=== PATIENT | male | born 1965 | race Caucasian/White ===

== ENCOUNTER 2023-04-23 09:22 | Emergency (ER) | payer BC, SELFPAY ==
--- NOTE | ~2023-04-23 | XR_ITS ---
EXAMINATION: XR ribs RT 2V w CXR 2V DATE: 04/23/2023 13:19 INDICATION: Right chest injury TECHNIQUE: PA and lateral views of the chest and 3 views of the right ribs were obtained. COMPARISON: None FINDINGS: Minimally displaced and angulated anterolateral right fourth rib fracture. No other rib fractures dacia ntified. Small right pleural effusion. No pneumothorax. Mild streaky atelectasis at the bilateral ian g bases. No pulmonary edema or left-sided pleural effusion. Cardiomediastinal silhouette is within no rmal limits for AP technique. Mild to moderate thoracic spondylosis. IMPRESSION: 1. Acute minimally displaced and angulated anterolateral right fourth rib fracture. 2. Likely posttraumatic small right pleural effusion. No pneumothorax. 3. Mild streaky bibasilar opacities and favor atelectasis over pneumonia. Reviewed, dictated and finalized at location A. GER R D IMPRESSION: 1. Acute minimally displaced and angulated anterolateral right fourth rib fract ure. 2. Likely posttraumatic small right pleural effusion. No pneumothorax. 3. Mild streaky bibasilar opacities and favor atelectasis over pneumonia.
--- NOTE | ~2023-04-23 | XR_ITS ---
EXAMINATION: XR shoulder RT min 2V INDICATION: Right shoulder pain TECHNIQUE: Four views of the right shoulder are submitted. COMPARISON: None FINDINGS: There are 11 mm of separation at the acromioclavicular joint. The acromion is positioned 21 mm caudal to its normal position relative to the clavicle. The glenohumeral joint is unremarkable. T here is heterotopic ossification at the acromioclavicular joint. There is an acute appearing right fo urth rib fracture. There are airspace opacities of the right lung base. A small right pleural effusio n is suggested. IMPRESSION: 1. Probable acute right fourth rib fracture. 2. Age indeterminate acromioclavicular joint separation. Reviewed, dictated and finalized at location B. 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
[2023-04-23 09:39] VITALS: BP 143/84; PULSE 87; RESP 18; TEMP 36.4; O2SAT 96
[2023-04-23] MEDS: diazePAM INJ (*CRX) 10 MG/2 ML SYRINGE 5 MG IV PUSH (13:04)
[2023-04-23] MEDS: KETOROLAC 30 MG/ML VIAL (*BKC) IV PUSH (13:04)
[2023-04-23] MEDS: SODIUM CHLORIDE 0.9% IV 1,000 ML 999 ML IV CONT (13:04)
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
== END 2023-04-23 14:41 | disposition home or self-care (01) ==
PROVIDERS: Emergency Provider Emergency Medicine; PCP Family Medicine
DX: S22.31XA Fracture of one rib, right side, initial encounter for closed fracture (principal); M62.838 Other muscle spasm; I25.10 Atherosclerotic heart disease of native coronary artery without angina pectoris; I10 Essential (primary) hypertension; E03.9 Hypothyroidism, unspecified; E78.5 Hyperlipidemia, unspecified; V86.55XA Driver of 3- or 4- wheeled all-terrain vehicle (ATV) injured in nontraffic accident, initial encounter
CPT/HCPCS: 71046; 71100; 73030; 96361; 96374; 96375; 99284; J1885; J3360; J7030

== ENCOUNTER 2024-10-03 14:46 | Emergency (ER) | payer BC, SELFPAY ==
--- NOTE | ~2024-10-03 | XR_ITS ---
EXAMINATION: XR chest 2V Exam Date/Time: 10/03/2024 15:15 CDT HISTORY: chest pain, SWEATING, CHILLS X 3 DAYS Comparison: 04/23/2023 x-ray RIBS and chest. RESULT: Lines, tubes, and devices: None. Lungs and pleura: Streaky bibasilar atelectasis/scar, otherwise clear. Cardiomediastinal silhouette: Stable. Other: No acute osseous or upper abdominal finding. Old healed right anterior fourth rib fracture. IMPRESSION: No acute cardiopulmonary process. Reviewed, dictated and finalized at location [facility].
--- OUTSIDE RECORDS SUMMARY | 2024-10-03 14:50 | XMS_ITS | Patient Health Record ---
Author Organization [facility] Address [address] [facility]. [address] [place] [address] Care Team Providers Care Instructor Tap Dancing Name Role Phone Merrill Salazar MD Primary Care Provider Unavailab Candelario Menchaca Unavailable [phone] Reason For Referral No Information Plan Of Treatment No Information Insurance Providers Payer Name Payer Address Payer Phone Subscriber Number Group Number Insured Name Patient Relationship to Insured Coverage Start Date Coverage End Date Blue Access PPO [id number] [address] [place] [address] [id number] Elder Bates Self - patient is the insured
--- OUTSIDE RECORDS SUMMARY | 2024-10-03 14:50 | XMS_ITS | Clinical Summary ---
Author Organization [facility] Address [address] [place] [address] Care Team Providers Care Contact Lens Technician Name Role Phone Merrill Salazar MD Primary Care Provider [phone] Gilbert Coats MD Unavailable [phone] Fer Le MD Unavailable Allergies No known active allergies Medications multivitamin with minerals tablet Take 1 tablet by mouth daily Active lisinopriL (PRINIVIL,ZESTR IL) 5 mg tablet Take 1 tablet (5 mg total) by mouth daily 90 tablet 2 3 Active atorvastatin (LIPITOR) 80 mg tablet Take 1 tablet (80 mg total) by mouth daily 90 tablet 2 3 Active ticagrelor (BRILINTA) 90 mg tablet Take 1 tablet (90 mg total) by mouth 2 (two) times a day 180 tablet 2 3 Active aspirin 81 mg enteric coated tablet Take 1 tablet (81 mg total) by mouth daily 90 tablet 3 Active omeprazole (PriLOSEC) 20 mg capsule Take 2 capsules (40 mg total) by mouth 2 (two) times a day Active levothyroxine (SYNTHROID) 175 mcg tablet Take 1 tablet (175 mcg total) by mouth marine extension agent before breakfast Active ezetimibe (ZETIA) 10 mg tablet Take 1 tablet (10 mg total) by mouth daily 90 tablet 2 3 Active Additional Information Patient not taking.Reported on 11/27/2022 metoprolol tartrate (LOPRESSOR) 50 mg immediate release tablet TAKE ONE TABLET BY MOUTH TWICE DAILY 60 tablet 6 3 Active Active Problems Problem Noted Date Diagnosed Date S/P primary angioplasty with coronary stent 04/06 Precordial pain 04/26/2022 Abnormal electrocardiogram during exercise stres s test 04/25/2022 Overview (04/26/2022): Added automatically from request for surgery [id number] Acquired hypothyroidism 05/13/2019 Assessment & Plan (11/27/2022 2:16 PM CDT): Chronic problem. Last TSH drawn by cardio 6.37. Has not been taking alone (with all other meds). Will start taking 30-60min before eating or other meds. Will repeat labs in 6-8 weeks. Verified that he uses [facility] [employer] [facility]. Aware to check results/results letter in [employer]. Will contact by phone if needed. Assessment & Plan (10/13/2021 1:53 PM CDT): Continue with Levothyroxine 175 mc weekly Assessment & Plan (04/14/2021 2:39 PM COUNCIL ON AGING DIRECTOR): Thyroid function tests, including TSH and free T4 were requested Will adjust dose of Levothyroxine accordingly . If there is a need to make changes, will recheck levels in 2-3 months. Instructions to patient on taking medication properly : in the morning, on an empty stomach , 1 h part from food and/or other meds. Assessment & Plan (09/30/2020 2:37 PM CDT): Thyroid function tests, including TSH and free T4 were requested Will adjust dose of Levothyroxine accordingly . If there is a need to make changes, will recheck levels in 2-3 months. Instructions to patient on taking medication properly : in the morning, on an empty stomach , 1 h part from food and/or other meds. Assessment & Plan (04/01/2020 1:43 PM COUNCIL ON AGING DIRECTOR): Uncontrolled Increase to 175 mcg daily Recheck levels in 3 months. Assessment & Plan (10/02/2019 4:04 PM CDT): Thyroid function tests, including TSH and free T4 were requested Will adjust dose of Levothyroxine accordingly . If there is a need to make changes, will recheck levels in 2-3 months. Instructions to patient on taking medication properly : in the morning, on an empty stomach , 1 h part from food and/or other meds. 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 If within the next few days or weeks, you experience any fever, difficulty in breathing or chest pain, proceed to the emergency room. Follow up in 6 weeks. It is very important that you keep your appointment. ! Hypercholesterolemia 05/13/2019 Assessment & Plan (10/13/2021 1:52 PM CDT): Pravachol 40 mg daily Assessment & Plan (10/02/2019 4:04 PM CDT): Check lipid profile Adjust dose of Pravachol as indicated Low chol low fat diet exercise Assessment & Plan (06/10/2019 1:28 PM CDT): Check lipid profile Might be able to come off of statins, Assessment & Plan (05/13/2019 12:28 PM CDT): This is most likely related to severe hypothyroidism. I would focus on treating the hypothyroidism, before adjusting any dose of statin The patient asked me to recheck his lipid profile today T Low testosterone 05/13/2019 Assessment & Plan (11/27/2022 2:11 PM CDT): Chronic problem. Testosterone stopped by automotive service consultant after stent placed 04/2022. Assessment & Plan (10/13/2021 1:52 PM CDT): Continue with T , 200 mg qod Assessment & Plan (04/14/2021 2:39 PM COUNCIL ON AGING DIRECTOR): Check T levels Restart T replacement as indicated Assessment & Plan (09/30/2020 2:38 PM CDT): Continue T replacement with Androgel Check CBC, PSA Assessment & Plan (04/01/2020 1:43 PM COUNCIL ON AGING DIRECTOR): Restart T gel Recheck levels in 3 m Assessment & Plan (10/02/2019 4:05 PM CDT): Will recheck morning testosterone levels as well as FSH and LH If abnormal, will address Assessment & Plan (05/13/2019 12:28 PM CDT): Without any clinical evidence of hypogonadism I will recheck a morning testosterone after his thyroid levels are normalized Abnormal stress test Coronary artery disease involving [place] heart Immunizations Immunization Administration Dates Next Due Moderna SARS-CoV-2 Monovalent Vaccination (12+ Y RS) 06/29/2020,06/01/2020 Surgical History Surgery Date Site/Laterality Comments HERNIA REPAIR 03/05/2015 - 03/04/2016 Medical History Medical History Date Comments Hyperlipidemia GERD (gastroesophageal reflux disease) Thyroid disease HL (hearing loss) Hoarseness Family History Medical History Relation Name Comments No Known Problems Father No Known Problems Mother Thyroid disease Neg Hx Relation Name Status Comments Father Mother Social History Tobacco Use Types Packs/Day Years Used Date Smoking Tobacco: Former Cigarettes Q uit: 01/03/2022 Smokeless Tobacco: Never PHQ-2 Answer Date Recorded PHQ-2 Total Score (If total score is 3 or more points, staff should administer the PHQ-9) 0 06/12/2022 Personal Safety Answer Date Recorded Getting School Help Needed Not on file Sex and Gender Information Value Date Recorded Sex Assigned at Not on file Legal Sex Male 1:34 PM CDT Gender Identity Not on file Sexual Orientation Not on file Obstetrics History Last Filed Vital Signs Vital Sign Reading Time Taken Comments Blood Pressure 119/64 11/27/2022 1:27 PM CDT Pulse 64 11/27/2022 1:27 PM CDT Temperature 36.6 C (97.9 F) 04/28/2022 11:02 AM COUNCIL ON AGING DIRECTOR Respiratory Rate 17 04/28/2022 11:0 2 AM COUNCIL ON AGING DIRECTOR Oxygen Saturation 98% 10/02/2022 12: 51 PM CDT Inhaled Oxygen Concentration - - Weight 101.4 kg (223 lb 9.6 oz) 11/27/2022 1:27 PM CDT Height 172.7 cm (5' 8) 11/27/2022 1:27 PM CDT Body Mass Index 34 11/27/2022 1:27 PM CDT Plan of Treatment Health Maintenance Due Date Last Done Comments Colon Cancer Screening-Colonoscopy 1965 Hepatitis C Screening 1965 DTaP/Tdap/Td Vaccine (1 - Tdap) 1974 Hepatitis B Screening 1981 Regular Well Visit/Exam 18-64 1981 Zoster Vaccine (1 of 2) 2013 Prostate Cancer Screening-PSA 09/30/2022 09/30/2020 Depression Screening 06/13/2023 06/12/2022, 06/12/2022, 10/13/2021, Additional history exists Covid-19 Vaccine ( season) 2023 06/29/2020, 06/01/2020 Influenza Vaccine (#1) 2024 Pneumococcal vaccine <65 Aged Out No longer eligible based on patient's age to complete this topic Medical Devices Implanted Type Area Extrusion Die Template Maker Device Identifier Shelf Expiration Date Model / Serial / Lot Medtronic Card Vasc Surgery 3.0 X 18mm [place] Rx Coronary Stent [id number] - [id number] Implanted:Qty: 1 on 04/27/2022 by Gilbert Coats MD at [facility] Medtronic Card Vasc Surgery 01/10/2025 [id number] / / [id number] NaviExpert Angio-Seal Vip 6fr Closere Device [id number] - [id number] Implanted:Qty: 1 on 04/27/2022 by Gilbert Coats MD at [facility] 12/02/2022 [id number] / / [id number] Procedures Procedure Name Priority Date/Time Associated Diagnosis Comments PSA SCREEN Routine 09/30/2020 3:34 PM CDT from Last 3 Months or Most Recently Relevant to Health Maintenance Results * PSA screen (09/30/2020 3:34 PM CDT) PSA 0.5 < OR = 4.0 ng/mL [facility] Comment: The total PSA value from this assay system is standardized against the WHO standard. The test result will be approximately 20% lower when compared to the equimolar-standardized total PSA (Jose Luis Juancarlos). Comparison of serial PSA results should be interpreted with this fact in mind. This test was performed using the Siemens chemiluminescent method. Values obtained from different assay methods cannot be used interchangeably. PSA levels, regardless of value, should not be interpreted as absolute evidence of the presence or absence of disease. 09/30/2020 3:34 PM CDT 09/30/2020 3:36 PM CDT Narrative [facility] - 10/01/2020 5:55 AM CDT FASTING:NO FASTING: NO us Fer Le MD LAB BLOOD ORDERABLES Final Resul t [facility] [address] [place] [address] from Last 3 Months or Most Recently Relevant to Health Maintenance Insurance [facility] ACCESS CHOICE ANTHEM ACCESS CHOICE ANTHEM ACCESS CHOICE Advance Directives For more information, please contact: [phone] * Full Code (Latest Code Status on File) Date Activated Date Inactivated Comments 04/26/2022 3:18 AM 04/28/2022 7:20 PM Care Teams Contact Lens Technician Relationship Specialty Start Date End Date Merrill Salazar MD [address] [place] [address] PCP - General Family Medicine 04/09/19 Gilbert Coats MD [address] [place] [address] Consulting Physician Cardiovascular Disease 05/08/22 [place] [id number] [address] Consulting Physician Endocrinology Diabetes & Metabolism 05/08/22
--- OUTSIDE RECORDS SUMMARY | 2024-10-03 14:50 | XMS_ITS | Referral Summary ---
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 Last TSH drawn by cardio 6.37. Has not been taking alone (with all other meds). Will start taking 30-60min before eating or other meds. Will repeat labs in 6-8 weeks. Verified that he uses [facility]. Aware to check results/results letter in [facility]. Will contact by phone if needed. Assessment & Plan (10/13/2021 1:53 PM CDT): Continue with Levothyroxine 175 mc weekly Assessment & Plan (04/14/2021 2:39 PM DIRECTOR OF BUSINESS CONTINUITY): Thyroid function tests, including TSH and free [...] meds. Assessment & Plan (04/01/2020 1:43 PM DIRECTOR OF BUSINESS CONTINUITY): Uncontrolled Increase to 175 mcg daily Recheck [...] PM CDT): Chronic problem. Testosterone stopped by well logger after stent placed 04/2022. Assessment & Plan (10/13/2021 1:52 PM CDT): Continue with T , 200 mg qod Assessment & Plan (04/14/2021 2:39 PM DIRECTOR OF BUSINESS CONTINUITY): Check T levels Restart T replacement as indicated Assessment & Plan (09/30/2020 2:38 PM CDT): Continue T replacement with Androgel Check CBC, PSA Assessment & Plan (04/01/2020 1:43 PM DIRECTOR OF BUSINESS CONTINUITY): Restart T gel Recheck levels in 3 m Assessment & Plan (10/02/2019 4:05 PM CDT): Will recheck morning testosterone levels as well as FSH and LH If abnormal, will address Assessment & Plan (05/13/2019 12:28 PM CDT): Without any clinical evidence of hypogonadism I will recheck a morning testosterone after his thyroid levels are normalized Abnormal stress test Coronary artery disease involving [place] heart Immunizations Immunization Administration Dates Next Due Moderna SARS-CoV-2 Monovalent Vaccination (12+ Y RS) 06/29/2020,06/01/2020 Social History Tobacco Use Types Packs/Day Years [...] on file Sexual Orientation Not on file Last Filed Vital Signs Vital Sign Reading Time Taken Comments Blood Pressure 119/64 11/27/2022 1:27 PM CDT Pulse 64 11/27/2022 1:27 PM CDT Temperature 36.6 C (97.9 F) 04/28/2022 11:02 AM DIRECTOR OF BUSINESS CONTINUITY Respiratory Rate 17 04/28/2022 11:0 2 AM DIRECTOR OF BUSINESS CONTINUITY Oxygen Saturation 98% 10/02/2022 12: 51 PM CDT Inhaled Oxygen Concentration - - Weight 101.4 kg (223 lb 9.6 oz) 11/27/2022 1:27 PM CDT Height 172.7 cm (5' 8) 11/27/2022 1:27 PM CDT Body Mass Index 34 11/27/2022 1:27 PM CDT Plan of Treatment Not on file Medical Devices Implanted Type Area Transfusion Aide Device Identifier Shelf Expiration Date Model / Serial / Lot Medtronic Card Vasc Surgery 3.0 X 18mm [place] Rx Coronary Stent [id number] - [id number] Implanted:Qty: 1 on 04/27/2022 by Gilbert Coats MD at [facility] [employer] Card Vasc Surgery 01/10/2025 [id number] / / [id number] [employer]ious Angio-Seal Vip 6fr Closere Device [id number] - [id number] Implanted:Qty: 1 on 04/27/2022 by Gilbert Coats MD at [facility] [employer] 12/02/2022 [id number] / / [id number] Procedures Procedure Name Priority Date/Time Associated Diagnosis Comments PSA SCREEN Routine 09/30/2020 3:34 PM CDT from Last 3 Months or Most Recently Relevant to Health Maintenance Results * PSA screen (09/30/2020 3:34 PM CDT) PSA 0.5 < OR = 4.0 ng/mL [facility] Comment: The total PSA value from [...] 3:34 PM CDT 09/30/2020 3:36 PM CDT [facility] - 10/01/2020 5:55 AM CDT FASTING:NO FASTING: NO us Fer Le MD LAB BLOOD ORDERABLES Final Resul t [facility] [facility] [address] [address] [address] from Last 3 Months or Most Recently Relevant to Health Maintenance Insurance [email or web address] ACCESS CHOICE [facility] ACCESS CHOICE Advance Directives For more information, please contact: [phone] * Full Code (Latest Code Status on File) Date Activated Date Inactivated Comments 04/26/2022 3:18 AM 04/28/2022 7:20 PM Care Teams Sawing And Assembly Supervisor Relationship Specialty Start Date End Date Merrill Salazar MD [address] [place] [address] PCP - General Family Medicine 04/09/19 Gilbert Coats MD [address] [place] [address] Consulting Physician Cardiovascular Disease 05/08/22 [place] [id number] [address] Consulting Physician Endocrinology Diabetes & Metabolism 05/08/22
[2024-10-03 14:54] VITALS: BP 108/52; PULSE 85; RESP 17; TEMP 36.9; O2SAT 100
--- NOTE | 2024-10-03 15:00 | ECG_ITS ---
Test Date: 2024-10-03 15:02:58 Measurements Intervals [place] Rate: 84 P: 28 OK: 141 QRS: -18 QRSD: 104 T: 13 QT: 371 QTc: 439 Interpretive Statements SINUS RHYTHM WITH OCCASIONAL SUPRAVENTRICULAR PREMATURE COMPLEXES INCOMPLETE RIGHT BUNDLE BRANCH BLOCK VOLTAGE CRITERIA FOR LVH MINIMAL Q [place]- HIGH LATERAL LEADS BORDERLINE ECG No previous ECG available for comparison Electronically Signed On 10-03-2024 15:08:39 CDT by Alon lAonso D.O.
--- NOTE | 2024-10-03 15:04 | ED_ITS ---
HPI - General Adult General Chief complaint: Unspecified <Kimberley Izaguirre APRN - Last Filed: 10/03/24 15:07> Stated complaint: feels dehydrated works outside in the heat <Kimberley Izaguirre APRN - Last Filed: 10/03/24 15:07> Time Seen by Provider: 10/03/24 15:00 <Kimberley Izaguirre APRN - Last Filed: 10/03/24 15:07> Focused HPI: Patient is a 59-year-old male who presents to the ER with concerns of dehydration. He reports he worked outside on Sunday and Sunday, 5 and 4 days ago. Patient reports he started experiencing symptoms after that. He endorses pain to his right upper shoulder, intermittent shortness of breath, and cold sweats. Patient also endorses symptoms including vertigo, lethargy, headache, and chest pressure. He endorses a history of high blood pressure and as a cardiac stent that was placed in 2022. Patient is worried he is dehydrated or has some little bug. He denies any abdominal pain, urinary symptoms, or lower extremity swelling. GENERAL: Well-appearing, well-nourished, and in no acute distress. HEAD: Normocephalic, atraumatic. CHEST: Clear to auscultation. ?No respiratory distress. HEART: Regular rate and rhythm.? NEURO: ?Alert and oriented x3. Patient screened in triage and initial orders placed.? ?Additional care and disposition to be based upon?diagnostic testing and treatment. <Kimberley Izaguirre APRN - Last Filed: 10/03/24 15:07> History of Present Illness HPI narrative: Agree with the HPI above. Patient states he feels much better after drinking Pedialyte at home. <Rommel Villegas MD - Last Filed: 10/03/24 20:56> Related Data Allergies/adverse reactions: Allergies Allergy/AdvReac Type Severity Reaction Status Date / Time No Known Allergies Allergy Verified 10/03/24 15:00 <Kimberley Izaguirre APRN - Last Filed: 10/03/24 15:07> Review of Systems 2 Review of Systems: As reviewed above in HPI <Rommel Villegas MD - Last Filed: 10/03/24 20:56> [facility] Past Medical History Medical History: Medical History Hypothyroidism Coronary artery disease Hyperlipidemia Hypertension <Kimberley Izaguirre APRN - Last Filed: 10/03/24 15:07> Surgical History Surgical History: Surgical History History of percutaneous coronary intervention <Kimberley Izaguirre APRN - Last Filed: 10/03/24 15:07> Social History Social History: Social History Alcohol intake: current <Kimberley Izaguirre APRN - Last Filed: 10/03/24 15:07> Exam 2 Narrative: GENERAL: [Well-appearing, well-nourished, and in no acute distress.] HEAD: [Normocephalic, atraumatic.] EYES: [PERRLA and EOMI.] ENT: Nares clear, no rhinorrhea or epistaxis. Mucous membranes moist. NECK: Supple. CHEST: [Clear to auscultation. No respiratory distress.] HEART: [Regular rate and rhythm]. No murmur heard. [Normal peripheral pulses.] ABDOMEN: [Soft, nondistended], [nontender], [No rigidity or guarding] EXTREMITIES: Normal range of motion. [No edema.] SKIN: Warm, dry, no rash. NEURO: [No focal deficits]. Alert and oriented [x3.] PSYCH: [Normal mood and affect.] <Rommel Villegas MD - Last Filed: 10/03/24 20:56> Course Vital Signs Vital signs: Vital Signs Temperature 36.9 C 10/03/24 14:54 Pulse Rate 85 10/03/24 14:54 Respiratory Rate 17 10/03/24 14:54 Blood Pressure 108/52 L 10/03/24 14:54 Pulse Oximetry 100 10/03/24 14:54 Oxygen Delivery Room Air 10/03/24 14:54 Temperature 36.8 C 10/03/24 15:44 Pulse Rate 94 10/03/24 18:35 Respiratory Rate 20 10/03/24 18:35 Blood Pressure 133/96 H 10/03/24 18:35 Pulse Oximetry 100 10/03/24 18:35 Oxygen Delivery Room Air 10/03/24 14:54 <Kimberley Izaguirre APRN - Last Filed: 10/03/24 15:07> Vital Signs Temperature 36.9 C 10/03/24 14:54 Pulse Rate 85 10/03/24 14:54 Respiratory Rate 17 10/03/24 14:54 Blood Pressure 108/52 L 10/03/24 14:54 Pulse Oximetry 100 10/03/24 14:54 Oxygen Delivery Room Air 10/03/24 14:54 Temperature 36.8 C 10/03/24 15:44 Pulse Rate 94 10/03/24 18:35 Respiratory Rate 20 10/03/24 18:35 Blood Pressure 133/96 H 10/03/24 18:35 Pulse Oximetry 100 10/03/24 18:35 Oxygen Delivery Room Air 10/03/24 14:54 <Rommel Villegas MD - Last Filed: 10/03/24 20:56> Medical Decision Making MDM Narrative Medical decision making narrative: 59-year-old male presenting to the emergency department for concerns of dehydration. He states he has been working outside in the hot sun since Sunday. He states he spends up to 10-12 hours outside and drinking little bits of water. States he is feeling dehydrated endorsing muscle cramps throughout both her shoulders and legs. At some other complaints including intermittent shortness of breath and cold sweats while working. No loss of consciousness, headache or nausea. No mental status changes. States he took some Pedialyte and electrolytes at home and felt much better. He has also had a secondary complaint of some urinary symptoms including frequency and urgency with trouble urinating. States that that has been going on longer than his other symptoms. He has a reassuring physical examination otherwise well-appearing. Suspicion presently is for dehydration, rhabdomyolysis, electrolyte imbalances. Low suspicion cardiac etiology towards his symptoms. Low Wells criteria. He was given IV and oral hydration with good effect. He states he feels much better after the IV fluids. States his symptoms have since resolved. Laboratory studies were ordered in triage including cardiac enzymes, CBC, CMP, CPK, D-dimer, EKG, lipase. Workup shows slight leukocytosis of 12.6, some anemia of 10.1, normal platelets. Normal PT INR. D-dimer of 0.59 which excludes him from suspicion of thromboembolic PE based on YEARS algorithm. Electrolytes are largely unremarkable. Creatinine 1.20. Glucose 148. Normal LFTs. Negative troponin. CPK is elevated consistent with his dehydration. Not severely elevated. Normal lipase. Urinalysis does have signs of an infection which can contribute to his urinary symptoms but likely unrelated to his initial complaints. Given a course of Keflex to treat this. Patient felt significant improved after hydration and was comfortable the plan for outpatient follow-up regarding his presentation today and given return precautions and discharge instructions with course of antibiotics into his pharmacy. <Rommel Villegas MD - Last Filed: 10/03/24 20:56> Medical Records Medical records reviewed: Yes I reviewed the external patient's medical records. <Rommel Villegas MD - Last Filed: 10/03/24 20:56> Vital Signs Vital Signs: Vital Signs Temperature 36.9 C 10/03/24 14:54 Pulse Rate 85 10/03/24 14:54 Respiratory Rate 17 10/03/24 14:54 Blood Pressure 108/52 L 10/03/24 14:54 Pulse Oximetry 100 10/03/24 14:54 Oxygen Delivery Room Air 10/03/24 14:54 Temperature 36.8 C 10/03/24 15:44 Pulse Rate 94 10/03/24 18:35 Respiratory Rate 20 10/03/24 18:35 Blood Pressure 133/96 H 10/03/24 18:35 Pulse Oximetry 100 10/03/24 18:35 Oxygen Delivery Room Air 10/03/24 14:54 <Kimberley Izaguirre, [employer] - Last Filed: 10/03/24 15:07> Vital Signs Temperature 36.9 C 10/03/24 14:54 Pulse Rate 85 10/03/24 14:54 Respiratory Rate 17 10/03/24 14:54 Blood Pressure 108/52 L 10/03/24 14:54 Pulse Oximetry 100 10/03/24 14:54 Oxygen Delivery Room Air 10/03/24 14:54 Temperature 36.8 C 10/03/24 15:44 Pulse Rate 94 10/03/24 18:35 Respiratory Rate 20 10/03/24 18:35 Blood Pressure 133/96 H 10/03/24 18:35 Pulse Oximetry 100 10/03/24 18:35 Oxygen Delivery Room Air 10/03/24 14:54 <Rommel Villegas MD - Last Filed: 10/03/24 20:56> Lab Data Lab results reviewed: Yes I reviewed the patient's lab results. <Rommel Villegas MD - Last Filed: 10/03/24 20:56> Result diagrams: 10/03/24 15:11 10/03/24 15:11 <Kimberley Izaguirre APRN - Last Filed: 10/03/24 15:07> Labs: Lab Results 10/03/24 10/03/24 Range/Units 15:11 16:01 WBC 12.6 H (4.5-10.0) K/mm3 RBC 3.71 L (4.6-6.20) M/mm3 Hgb 10.1 L (14.0-18.0) g/dL Hct 32.3 L (42.0-52.0) % MCV 87.1 (80-100) fl MCH 27.2 (26-34) pg MCHC 31.3 L (32-36) g/dl RDW 15.3 H (11.5-14.5) % Plt Count 166 (150-375) k/mm3 MPV 10.7 H (7.4-10.4) fl Immature Gran % (Auto) 1.0 H (0-0.5) % Neut % (Auto) 91.4 H (45.5-73.1) % Lymph % (Auto) 4.0 L (18.3-44.2) % [place] % (Auto) 3.4 (2.6-8.5) % Eos % (Auto) 0.0 (0-4.4) % Baso % (Auto) 0.2 (0.2-1.2) % Lymph # (Auto) 0.50 L (0.9-3.2) K/mm3 [place] # (Auto) 0.4 (0.1-0.6) K/mm3 Eos # (Auto) 0.0 (0-0.3) K/mm3 Baso # (Auto) 0.0 (0.0-0.1) K/mm3 Abs Immat Gran (auto) 0.13 H (0.00-0.031) K/mm3 Absolute Neuts (auto) 11.6 H (1.3-6.7) K/mm3 Absolute Nucleated RBC 0.000 (0.0-0.012) K/mm3 Nucleated RBC % 0.0 (0.0-0.2) % PT 15.0 H (11.1-14.7) Seconds INR 1.2 APTT 31.7 (22.3-36.8) Seconds D-Dimer 0.59 H (<0.48) ug/mL Sodium 131 L (137-145) mmol/L Potassium 3.8 (3.4-5.0) mmol/L Chloride 100 (98-107) mmol/L Carbon Dioxide 21 L (22-30) mmol/L Anion Gap 10 (4-12) mmol/L BUN 15 (9-20) mg/dL Creatinine 1.20 (0.7-1.3) mg/dL Estim Creat Clear Calc Not Reportable Estimated GFR > 60 (59 - ) Glucose 148 H (65-110) mg/dL Calcium 8.6 (8.4-10.2) mg/dL Total Bilirubin 0.8 (0.2-1.3) mg/dL AST 26 (17-59) U/L ALT 22 (6-50) U/L Alkaline Phosphatase 75 (38-126) U/L Total Creatine Kinase 175 H (55-170) U/L Troponin I < 0.012 (0.000-0.034) ng/mL Total Protein 6.4 (6.3-8.2) g/dL Albumin 3.7 (3.5-5.1) g/dL Lipase 88 (23-300) U/L Urine Color Dark yellow (Yellow) Urine Appearance Cloudy H (Clear) Urine pH 5.0 (5.0-9.0) Ur Specific [place] 1.042 H (1.001-1.035) Urine Protein 2+ H (Negative) mg/dL Urine Glucose (UA) Negative (Negative) mg/dL Urine Ketones 1+ H (Negative) mg/dL Ur Blood (Man) 2+ H (Negative) Urine Nitrate Positive H (Negative) Urine Bilirubin 1+ H (Negative) Urine Urobilinogen 1.0 (<2.0) mg/dL Add Ur Microanalysis Reviewed Leukocyte Esterase Rfl 1+ H (Negative) JO/UL Urine RBC 0-2 (0-2) /hpf Urine WBC 21-50 H (0-3) /hpf Ur Squamous Epith Cells Moderate (Few) /hpf Urine Bacteria 1+ H /hpf Urine Casts >20 Urine Mucus Present /lpf <Kimberley Izaguirre, [employer] - Last Filed: 10/03/24 15:07> Lab Results 10/03/24 10/03/24 Range/Units 15:11 16:01 WBC 12.6 H (4.5-10.0) K/mm3 RBC 3.71 L (4.6-6.20) M/mm3 Hgb 10.1 L (14.0-18.0) g/dL Hct 32.3 L (42.0-52.0) % MCV 87.1 (80-100) fl MCH 27.2 (26-34) pg MCHC 31.3 L (32-36) g/dl RDW 15.3 H (11.5-14.5) % Plt Count 166 (150-375) k/mm3 MPV 10.7 H (7.4-10.4) fl Immature Gran % (Auto) 1.0 H (0-0.5) % Neut % (Auto) 91.4 H (45.5-73.1) % Lymph % (Auto) 4.0 L (18.3-44.2) % [place] % (Auto) 3.4 (2.6-8.5) % Eos % (Auto) 0.0 (0-4.4) % Baso % (Auto) 0.2 (0.2-1.2) % Lymph # (Auto) 0.50 L (0.9-3.2) K/mm3 [place] # (Auto) 0.4 (0.1-0.6) K/mm3 Eos # (Auto) 0.0 (0-0.3) K/mm3 Baso # (Auto) 0.0 (0.0-0.1) K/mm3 Abs Immat Gran (auto) 0.13 H (0.00-0.031) K/mm3 Absolute Neuts (auto) 11.6 H (1.3-6.7) K/mm3 Absolute Nucleated RBC 0.000 (0.0-0.012) K/mm3 Nucleated RBC % 0.0 (0.0-0.2) % PT 15.0 H (11.1-14.7) Seconds INR 1.2 APTT 31.7 (22.3-36.8) Seconds D-Dimer 0.59 H (<0.48) ug/mL Sodium 131 L (137-145) mmol/L Potassium 3.8 (3.4-5.0) mmol/L Chloride 100 (98-107) mmol/L Carbon Dioxide 21 L (22-30) mmol/L Anion Gap 10 (4-12) mmol/L BUN 15 (9-20) mg/dL Creatinine 1.20 (0.7-1.3) mg/dL Estim Creat Clear Calc Not Reportable Estimated GFR > 60 (59 - ) Glucose 148 H (65-110) mg/dL Calcium 8.6 (8.4-10.2) mg/dL Total Bilirubin 0.8 (0.2-1.3) mg/dL AST 26 (17-59) U/L ALT 22 (6-50) U/L Alkaline Phosphatase 75 (38-126) U/L Total Creatine Kinase 175 H (55-170) U/L Troponin I < 0.012 (0.000-0.034) ng/mL Total Protein 6.4 (6.3-8.2) g/dL Albumin 3.7 (3.5-5.1) g/dL Lipase 88 (23-300) U/L Urine Color Dark yellow (Yellow) Urine Appearance Cloudy H (Clear) Urine pH 5.0 (5.0-9.0) Ur Specific [place] 1.042 H (1.001-1.035) Urine Protein 2+ H (Negative) mg/dL Urine Glucose (UA) Negative (Negative) mg/dL Urine Ketones 1+ H (Negative) mg/dL Ur Blood (Man) 2+ H (Negative) Urine Nitrate Positive H (Negative) Urine Bilirubin 1+ H (Negative) Urine Urobilinogen 1.0 (<2.0) mg/dL Add Ur Microanalysis Reviewed Leukocyte Esterase Rfl 1+ H (Negative) JO/UL Urine RBC 0-2 (0-2) /hpf Urine WBC 21-50 H (0-3) /hpf Ur Squamous Epith Cells Moderate (Few) /hpf Urine Bacteria 1+ H /hpf Urine Casts >20 Urine Mucus Present /lpf <Rommel Villegas MD - Last Filed: 10/03/24 20:56> Imaging Data Attestation: I personally reviewed and interpreted this imaging study as follows: < Rommel Villegas MD - Last Filed: 10/03/24 20:56> My impression: Impressions Chest X-Ray 10/03/24 15:33 IMPRESSION: No acute cardiopulmonary process. <Rommel Villegas MD - Last Filed: 10/03/24 20:56> Discharge Plan Discharge Clinical Impression: Acute dehydration, Urinary tract infection <Kimberley Izaguirre APRN - Last Filed: 10/03/24 15:07> Patient Disposition: Home <Kimberley Izaguirre APRN - Last Filed: 10/03/24 15:07> Condition: Stable <Kimberley Izaguirre APRN - Last Filed: 10/03/24 15:07> Instructions: Antibiotic Form, Dehydration (DC), Urinary Tract Infection in Men (ED) <Kimberley Izaguirre APRN - Last Filed: 10/03/24 15:07> Additional Instructions: You were treated today for acute dehydration secondary to being in the environment for multiple hours. Your laboratory studies do not show any signs of kidney damage or heart issues. You do have a urinary infection which could be a secondary issue and causing some of his urinary complaints. We will treat this with a course of antibiotics. Complete the antibiotics and follow-up with your regular primary care provider. Maintain good oral hydration with water and electrolyte replacement solution such as Pedialyte, liquid IV, Gatorade solutions. Return with any emergent concerns. <Kimberley Izaguirre APRN - Last Filed: 10/03/24 15:07> Patient Language: [place] <Kimberley Izaguirre APRN - Last Filed: 10/03/24 15:07> Prescriptions: New cephalexin 500 mg capsule 500 mg PO Q12H 5 Days Qty: 10 0RF No Action cyclobenzaprine 10 mg tablet 10 mg PO TID PRN (Reason: muscle spasm) Qty: 20 0RF naproxen 375 mg tablet 375 mg PO BID Qty: 14 0RF hydrocodone-acetaminophen 5-325 mg tablet 1 tablet PO Q6H PRN (Reason: pain) Qty: 20 0RF <Kimberley Izaguirre APRN - Last Filed: 10/03/24 15:07> Follow-up/Referrals: Li,Brody Gallo MD [Primary Care Provider] - <Kimberley Izaguirre APRN - Last Filed: 10/03/24 15:07> Time of Disposition: 18:00 <Kimberley Izaguirre APRN - Last Filed: 10/03/24 15:07> 18:00 <Rommel Villegas MD - Last Filed: 10/03/24 20:56>
[2024-10-03 15:25] LABS: Hematocrit 32.3 % (42.0-52.0); Hemoglobin 10.1 g/dL (14.0-18.0); Immature Granulocyte Percent A 1.0 % (0-0.5); Lymphocytes Absolute Auto 0.50 K/mm3 (0.9-3.2); Mean Corpuscular HGB Conc 31.3 g/dl (32-36); Mean Corpuscular Hemoglobin 27.2 pg (26-34); Mean Corpuscular Volume 87.1 fl (80-100); Nucleated Red Blood Cells Absolute Auto 0.000 K/mm3 (0.0-0.012); Nucleated Red Blood Cells Perc 0.0 % (0.0-0.2); Platelet Count Result 166 k/mm3 (150-375); Red Blood Count 3.71 M/mm3 (4.6-6.20); White Blood Count 12.6 K/mm3 (4.5-10.0)
[2024-10-03 15:36] LABS: Alanine Aminotransferase 22 U/L (6-50); Albumin Level 3.7 g/dL (3.5-5.1); Alkaline Phosphatase 75 U/L (38-126); Anion Gap 10 mmol/L (4-12); Aspartate Amino Transferase 26 U/L (17-59); Bilirubin,Total 0.8 mg/dL (0.2-1.3); Blood Urea Nitrogen 15 mg/dL (9-20); Calcium 8.6 mg/dL (8.4-10.2); Carbon Dioxide 21 mmol/L (22-30); Chloride 100 mmol/L (98-107); Estimated Glomerular Filt Rate > 60; Glucose 148 mg/dL (65-110); Lipase 88 U/L (23-300); Potassium 3.8 mmol/L (3.4-5.0); Sodium 131 mmol/L (137-145); Total Protein 6.4 g/dL (6.3-8.2)
[2024-10-03 15:44] VITALS: BP 121/68; PULSE 85; RESP 20; TEMP 36.8; O2SAT 100
[2024-10-03 15:46] LABS: Troponin I < 0.012 ng/mL (0.000-0.034)
[2024-10-03 15:57] LABS: INR 1.2; Partial Thromboplastin Time 31.7 Seconds (22.3-36.8); Prothrombin Time 15.0 Seconds (11.1-14.7)
[2024-10-03 16:19] LABS: Add Urine Microscopic? YES; Appearance Urine Cloudy (Clear); Glucose Urine UA Negative (Negative); Leukocyte Esterase Ur 1+ LEU/UL (Negative); Need Manual Microscopic Reviewed; Nitrate Urine Positive (Negative); Non Pathogenic Casts >20; Specific Grav Ur 1.042 (1.001-1.035)
[2024-10-03 16:22] VITALS: BP 119/54; PULSE 91; RESP 20; O2SAT 98
[2024-10-03] MEDS: LACTATED RINGERS 1,000 ML 999 ML IV CONT ×2 (17:00)
[2024-10-03 17:17] LABS: Creatine Kinase 175 U/L (55-170)
[2024-10-03 17:51] VITALS: BP 129/66; PULSE 96; RESP 20
[2024-10-03] MEDS: CEPHALEXIN 500 MG CAPSULE PO (18:25)
[2024-10-03 18:35] VITALS: BP 133/96; PULSE 94; RESP 20; O2SAT 100
== END 2024-10-03 18:37 | disposition home or self-care (01) ==
PROVIDERS: Registered Nurse; Emergency Provider Student in an Organized Health Care Education/Training Program; PCP Family Medicine
DX: N39.0 Urinary tract infection, site not specified (principal); E86.0 Dehydration; I10 Essential (primary) hypertension; I25.10 Atherosclerotic heart disease of native coronary artery without angina pectoris; E03.9 Hypothyroidism, unspecified; E78.5 Hyperlipidemia, unspecified; Z95.5 Presence of coronary angioplasty implant and graft; I49.1 Atrial premature depolarization; I45.10 Unspecified right bundle-branch block
CPT/HCPCS: 36415; 71046; 80053; 81001; 82550; 83690; 84484; 85025; 85380; 85610; 85730; 93005; 96360; 99284; A9270; J7120